=== PATIENT | female | born 1960 | race Caucasian/White ===

== ENCOUNTER 2020-03-09 10:55 | Day surgery (SDC) | payer OTHER ==
[~2020-03-09] VITALS: Ht 157.5 cm; Wt 53.5 kg
[~2020-03-09 10:55] MED LIST: BUPIVACAINE/EPI 0.5% 1:200K ONE; NEOSPORIN OINT, 15GM ONE; [UNRECOGNIZED DRUG - OTHER] TP
[2020-03-09] MEDS ORDERED: LACTATED RINGERS 1,000 ML IV SCH (11:26)
[2020-03-09] MEDS ORDERED: CHLORHEXIDINE 15 ML UDC MM ONE (11:30)
[2020-03-09] MEDS ORDERED: FENTANYL PF 100 MCG/2ML ONE (11:56)
[2020-03-09] MEDS ORDERED: MIDAZOLAM 1 MG/ML, 2ML ONE (11:56)
[2020-03-09] MEDS ORDERED: BUPIVACAINE/PF 0.5% ONE (11:57)
[2020-03-09] MEDS ORDERED: ALBUTEROL SULFATE 2.5 MG/3 ML NPPB PRN (12:30)
[2020-03-09] MEDS ORDERED: LABETALOL 5MG/ML, 20ML IV PRN (12:30)
[2020-03-09] MEDS ORDERED: ACETAMINOPHEN 325 MG TABLET PO PRN (12:30)
[2020-03-09] MEDS ORDERED: MEPERIDINE/PF 25MG/0.5ML IVPush PRN (12:30)
[2020-03-09] MEDS ORDERED: PROMETHAZINE 25 MG/ML, 1ML IVPush PRN (12:30)
[2020-03-09] MEDS ORDERED: FENTANYL PF 100 MCG/2ML IV PRN (12:30)
[2020-03-09] MEDS ORDERED: HYDROmorphone 1 MG/ML, 1ML INJ IVPush PRN (12:30)
[2020-03-09] MEDS ORDERED: hydrALAzine 20 MG/ML, 1ML IV PRN (12:30)
[2020-03-09] MEDS ORDERED: LORazepam 2 MG/ML, 1ML IVPush PRN (12:30)
[2020-03-09] MEDS ORDERED: OXYcodone 5 MG/5 ML ORAL.SOL UDC PO PRN (12:30)
[2020-03-09] MEDS ORDERED: ONDANSETRON 2MG/ML, 2ML ONE (13:25)
[2020-03-09] MEDS ORDERED: DEXAMETHASONE 4 MG/ML, 1ML ONE (13:25)
[2020-03-09] MEDS ORDERED: PROPOFOL 10 MG/ML, 20ML ONE (13:25)
[2020-03-09] MEDS ORDERED: CEFAZOLIN 1,000 MG ONE (13:25)
== END 2020-03-09 15:35 | disposition home or self-care (01) ==
LOC: OUT 10:55
PROVIDERS: ATTEND Orthopaedic Surgery
DX: T84.89XA Other specified complication of internal orthopedic prosthetic devices, implants and grafts, initial encounter (principal); Z11.59 Encounter for screening for other viral diseases; Y83.8 Other surgical procedures as the cause of abnormal reaction of the patient, or of later complication, without mention of misadventure at the time of the procedure; M67.231 Synovial hypertrophy, not elsewhere classified, right forearm; L93.0 Discoid lupus erythematosus; Z88.0 Allergy status to penicillin; Z79.899 Other long term (current) drug therapy; Z72.0 Tobacco use; Z85.828 Personal history of other malignant neoplasm of skin; Z98.890 Other specified postprocedural states; Z72.89 Other problems related to lifestyle
CPT/HCPCS: 24164; 36415; 64415; 73070; 87070; 87075; 87205; 87635; 93005; J0690; J1100; J2250; J2405; J2704; J3010; J7120; 76000